=== PATIENT | male | born 1950 | race Hispanic/Latino ===

== ENCOUNTER → 2018-05-09 | Outpatient (CLI) | payer MEDICARE ==
--- NOTE | 2018-05-09 17:42 | Diagnostic Imaging Report ---
ADDENDUM #1 RENAL ULTRASOUND TECHNIQUE: Ultrasound evaluation of the KIDNEYS. Color Doppler evaluation was utilized to supplement the evaluation. HISTORY: Chronic kidney disease COMPARISON: None available. DISCUSSION: Mildly increased parenchymal echogenicity of the kidneys. RIGHT KIDNEY: The right kidney measures 10 cm in length. The cortex measures 1.4 cm in thickness. Parenchyma is within normal limits. No hydronephrosis or solid mass lesions. LEFT KIDNEY: The left kidney measures 10 cm in length. The cortex measures 1.5 cm in thickness. Parenchyma is within normal limits. No hydronephrosis or solid mass lesions. BLADDER: Prevoid volume 328.7 cc and postvoid volume 5 cc. IMPRESSION: 1. Findings compatible with medical renal disease. 2. No obstruction. Signed by: Dr. Prieto Chavez D.O., M.M.M. on 05/16/2018 12:55 PM ORIGINAL REPORT RENAL ULTRASOUND TECHNIQUE: Ultrasound evaluation of the KIDNEYS. Color Doppler evaluation was utilized to supplement the evaluation. HISTORY: Chronic kidney disease COMPARISON: None available. DISCUSSION: Mildly increased parenchymal echogenicity of the kidneys. RIGHT KIDNEY: The right kidney measures 10 cm in length. The cortex measures 1.4 cm in thickness. Parenchyma is within normal limits. No hydronephrosis or solid mass lesions. LEFT KIDNEY: The left kidney measures 10 cm in length. The cortex measures 1.5 cm in thickness. Parenchyma is within normal limits. No hydronephrosis or solid mass lesions. BLADDER: Unremarkable IMPRESSION: 1. Findings compatible with medical renal disease. 2. No obstruction. Signed by: Dr. Prieto Chavez D.O., M.M.M. on 05/09/2018 5:39 PM
== END ==
LOC: EDSEX 13:08 → US 13:08
PROVIDERS: ATTEND Internal Medicine Nephrology
DX: N18.3 Chronic kidney disease, stage 3 (moderate) (principal); E11.9 Type 2 diabetes mellitus without complications; I10 Essential (primary) hypertension
CPT/HCPCS: 76770; 76857

== ENCOUNTER → 2019-08-31 | Outpatient (CLI) | payer MEDICARE ==
--- NOTE | 2019-08-31 13:37 | Diagnostic Imaging Report ---
Chest, PA and lateral. History: Z79.32, V56.3. Comparison: None available. Discussion: The cardiac silhouette is mildly enlarged. There is a small right pleural effusion with associated right basilar atelectasis. Left lung is grossly clear. There is no pneumothorax. Patient is status post ACDF. IMPRESSION: Small right pleural effusion. Signed by: Marcos Lamas MD on 08/31/2019 1:34 PM
== END ==
LOC: RAD 12:43
PROVIDERS: ATTEND Internal Medicine Nephrology
DX: Z49.32 Encounter for adequacy testing for peritoneal dialysis (principal); Z11.1 Encounter for screening for respiratory tuberculosis
CPT/HCPCS: 71046